=== PATIENT | female | born 1985 | race African-American/Black ===

== ENCOUNTER 2024-10-19 15:40 | Outpatient (CLI) | payer BC, SELFPAY ==
[2024-10-19 18:48] LABS: Chlamydia DNA Amplified* NOT DETECTED (No Detected); GC DNA Amplified* NOT DETECTED (No Detected)
== END 2024-10-19 15:41 | disposition home or self-care (01) ==
PROVIDERS: Visit Provider Obstetrics & Gynecology
DX: N89.8 Other specified noninflammatory disorders of vagina (principal); Z11.3 Encounter for screening for infections with a predominantly sexual mode of transmission
CPT/HCPCS: 87491; 87591

== ENCOUNTER 2024-11-02 09:54 | Outpatient (CLI) | payer BC, SELFPAY | END 2024-11-02 09:55 | disposition home or self-care (01) | LOC: NFLDREF 11-03 11:45 | PROVIDERS: Visit Provider Obstetrics & Gynecology | DX: Z13.1 Encounter for screening for diabetes mellitus (principal); Z13.220 Encounter for screening for lipoid disorders | CPT/HCPCS: 80061; 82947 ==